=== PATIENT | female | born 1980 | race Asian ===

== ENCOUNTER 2018-01-01 09:59 | Day surgery (SDC) | payer BC ==
[2017-12-29 13:08] VITALS: BMI 17.8
[2018-01-01 10:33] VITALS: TEMP 98.4
[2018-01-01] MEDS ORDERED: PROPOFOL 20 ML ONE ×2 (11:04)
[2018-01-01 12:09] VITALS: BP 95/60; PULSE 56
--- NOTE | 2018-01-03 15:55 | PATH ---
Surgical Pathology Report Patient Name: KAITY HARRISON [facility]. Rec. #: [id number] /Age/Gender: 1980 (Age: 37) / F Account: [id number] Location: [facility] Taken: 01/01/2018 Received: 01/01/2018 Reported: 01/03/2018 Physicians: Ray Perez M.D. Specimen(s) Received A: BX DUODENUM B: BX ANTRUM Clinical History Gastritis Postoperative diagnosis: Same Final Diagnosis A. DUODENUM, BIOPSY: DUODENAL MUCOSA WITH NO DIAGNOSTIC ABNORMALITIES. NO HISTOLOGIC EVIDENCE OF CELIAC DISEASE. B. ANTRUM, BIOPSY: GASTRIC MUCOSA WITH MILD CHRONIC GASTRITIS. IMMUNOSTAIN IS NEGATIVE FOR H. PYLORI ORGANISMS. NEGATIVE FOR INTESTINAL METAPLASIA. Electronically Signed Rufus Jaime M.D. Gross Description A. Received in formalin, labeled "biopsy duodenum" are 3 puente, irregular portions of soft tissue ranging from 0.3-0.5 cm. in greatest dimension. The specimens are submitted in toto in one cassette. B. Received in formalin, labeled "biopsy antrum" are 2 puente, irregular portions of soft tissue measuring 0.3 and 0.4 cm. in greatest dimension. The specimens are submitted in toto in one cassette. 01/02/2018 saudi01/02/2018
== END 2018-01-01 12:05 | disposition home or self-care (01) ==
LOC: FASU-ENDO 09:59
PROVIDERS: ATTEND Internal Medicine Gastroenterology
PROC: 0DB68ZX Excision of Stomach, Via Natural or Artificial Opening Endoscopic, Diagnostic (ICD-10-PCS; 2018-01-01)
PROC: 0DB98ZX Excision of Duodenum, Via Natural or Artificial Opening Endoscopic, Diagnostic (ICD-10-PCS; principal; 2018-01-01 11:20)
DX: K29.50 Unspecified chronic gastritis without bleeding (principal); R10.13 Epigastric pain
CPT/HCPCS: 84703; 88305-TC; 88342-TC